=== PATIENT | female | born 1965 | race Caucasian/White ===

== ENCOUNTER 2020-05-19 17:03 | Emergency (ER) | payer MEDICAID, MEDICARE ==
[~2020-05-19] VITALS: Ht 167.6 cm; Wt 63.3 kg
[~2020-05-19 17:03] MED LIST: ARIP15TA3 PO; ASEN5TAB7 SL; BENZ0.5T35 PO; CALC300T5 PO; CARB200T PO; CITA20TA9 PO; FLUR30CA3 PO; HORMONE MED; HYDR2TAB29 PO; LEVO137T25 PO; LORA-445 PO; LORAZEPAM PO; TRAM50TA2 PO; TRAZ50TA66 PO; ZOLP-413 PO
[2020-05-19] MEDS ORDERED: HYDROmorphone 2 MG/ML, 1ML IVPush ONE (18:00)
[2020-05-19] MEDS ORDERED: HYDROmorphone 1 MG/ML, 1ML INJ ONE (18:05)
[2020-05-19 18:17] LABS: BASOPHILS # (AUTO) 0.04 x10^3/uL (0-0.1); BASOPHILS % (AUTO) 1 % (0-1); EOSINOPHILS # (AUTO) 0.04 x10^3/uL (0-0.4); EOSINOPHILS % (AUTO) 1 % (1-7); LYMPHOCYTES # (AUTO) 1.87 x10^3/uL (1-3.4); LYMPHOCYTES % (AUTO) 43 % (22-44); MD NO; MEAN CORPUSCULAR HEMOGLOBIN 31.3 pg (27.0-34.8); MEAN CORPUSCULAR HGB CONC 33.8 g/dL (32.4-35.8); MEAN CORPUSCULAR VOLUME 92.5 fL (80-100); MEAN PLATELET VOLUME 7.2 fL (7.4-10.4); MONOCYTES # (AUTO) 0.34 x10^3/uL (0.2-0.8); MONOCYTES % (AUTO) 8 % (2-9); NEUTROPHILS # (AUTO) 2.05 x10^3/uL (1.8-6.8); NEUTROPHILS % (AUTO) 47 % (42-75); PLATELET COUNT 316 x10^3/uL (130-400); RED BLOOD COUNT 4.06 x10^6/uL (3.82-5.3); RED CELL DISTRIBUTION WIDTH 12.6 % (9.6-15.2)
[2020-05-19 18:26] LABS: ALBUMIN 3.3 g/dL (3.4-5.0); ANION GAP 7 mmol/L (5-15); CALCIUM 8.4 mg/dL (8.5-10.1); CHLORIDE 107 mmol/L (98-107)
[2020-05-19 18:31] LABS: ALANINE AMINOTRANSFERASE 32 U/L (12-78); ALKALINE PHOSPHATASE 86 U/L (45-117); BILIRUBIN,TOTAL 0.3 mg/dL (0.2-1.0); C-REACTIVE PROTEIN, QUANT 0.09 mg/dL (0.02-0.49); CREATININE 0.93 mg/dL (0.55-1.02); TOTAL PROTEIN 7.4 g/dL (6.4-8.2)
[2020-05-19 18:45] LABS: D-DIMER (DIC) 0.19 ug/mlFEU (0.00-0.52); PROTIME 11.1 Seconds (9.6-11.5)
[2020-05-19] MEDS ORDERED: KETOROLAC 30 MG/1 ML IVPush ONE (19:00)
[2020-05-19 19:09] VITALS: BP 118/54
[2020-05-19] MEDS ORDERED: KETOROLAC 30 MG/1 ML ONE (19:21)
[2020-05-19] MEDS ORDERED: DEXAMETHASONE 4 MG/ML, 1ML IVPush ONE (21:00)
[2020-05-19] MEDS ORDERED: OMNIPAQUE 350 MG/ML, 100ML BOTTLE ONE (23:29)
== END 2020-05-19 21:56 | disposition home or self-care (01) ==
LOC: ED 18:36
DX: M54.6 Pain in thoracic spine (principal); M79.2 Neuralgia and neuritis, unspecified; R05 Cough; R06.02 Shortness of breath; R94.31 Abnormal electrocardiogram [ECG] [EKG]
CPT/HCPCS: 36415; 71045; 74177; 80053; 82728; 83605; 83615; 84145; 85025; 85049; 85379; 85384; 85610; 85730; 86140; 93005; 96374; 96375; 99285; J1170; J1885; Q9967